=== PATIENT | female | born 1980 | race Caucasian/White ===

== ENCOUNTER → 2017-10-19 | Outpatient (CLI) | payer OTHER | LOC: FIMAGING 12:57 | PROVIDERS: ATTEND Registered Nurse | DX: O09.511 Supervision of elderly primigravida, first trimester (principal); Z3A.01 Less than 8 weeks gestation of pregnancy ==

== ENCOUNTER → 2018-02-07 | Outpatient (CLI) | payer OTHER | LOC: FIMAGING 11:50 | PROVIDERS: ATTEND Advanced Practice Midwife | DX: O09.522 Supervision of elderly multigravida, second trimester (principal); Z3A.22 22 weeks gestation of pregnancy ==

== ENCOUNTER 2018-06-10 16:10 | Observation (INO) | payer OTHER ==
[2018-06-10] MEDS ORDERED: LIDOCAINE 1% 300 MG/30 ML SDV ONE (16:58)
[2018-06-10] MEDS ORDERED: AMMONIA AROMATIC 1 EACH AMP IH ONE (16:59)
[2018-06-10] MEDS ORDERED: MISOPROSTOL 200 MCG TAB ONE (16:59)
[2018-06-10] MEDS ORDERED: OXYTOCIN 10 UNIT/ML VIAL ONE (16:59)
[2018-06-10] MEDS ORDERED: OLIVE OIL 118 ML BTL ONE (16:59)
[2018-06-10] MEDS ORDERED: TERBUTALINE SULFATE 1 MG/ML VIAL ONE (16:59)
--- NOTE | 2018-06-10 18:37 | SOAPPROG ---
TARA Progress Note Assessment/Plan: Assessment: 37 yo G3P@ @ 40.1 weeks. arrythmia Category 1 strip Plan: 06/10/18 18:[address] Vargas. If patient goes into labor tonight plan is for her to deliver at our hospital. Otherwise she may be discharged with plan to follow up tomorrow with [facility] for evaluation and to determine the best place for her to deliver her baby ( center vs hospital). Reviewed all of this with Cierra and given option of staying or discharging home tonight with plan to follow up with [facility] tomorrow. She plans on discharge now and will return if actively laboring. Maddison Stroud CNM was updated with the plan that she will arrange for Cierra to be evaluated tomorrow. Dr Spencer was also updated regarding this POC. 06/10/18 18:40 Subjective: Cierra 37 yo G3P@ 40.1 weeks. She is a patient of the [facility] and was being evaluated in the office today for normal visit. During that visit, the collections attorney heard audible skipped beats. After consulting with [facility] , Cierra was sent to L & D for further monitoring. She did have a VE done in the office and was found to be 1 cm, baby high. Objective: FHT Baseline 130; mod slava; multiple + accels, no decels. Visually subtle skipped beats are present, audibly were heard q 6 to 8 beats, with a run of skipped beats which did not milk pickup driver on the monitor. While being monitored began having frequent contractions which she notices however are normal for her for the last several nights. 20 week anatomy scan was performed by Dr Vargas of [facility] and structurally heart was noted to be normal. - Pending Discharge Pending Discharge Within 24 Hours: Yes Pending Discharge Date: 06/11/18 Pending Discharge Time: 11:00 ICD10 Worksheet Patient Problems: Problems Problem Status Onset arrhythmia affecting , antepartum Acute - ICD10 Problem Qualifiers (1) arrhythmia affecting , antepartum
== END 2018-06-10 18:20 | disposition home or self-care (01) ==
LOC: FLD 16:10
PROVIDERS: ADMIT Advanced Practice Midwife; ATTEND Advanced Practice Midwife
DX: O36.8330 Maternal care for abnormalities of the fetal heart rate or rhythm, third trimester, not applicable or unspecified (principal); Z3A.40 40 weeks gestation of pregnancy
CPT/HCPCS: J2590; J3105

== ENCOUNTER → 2018-06-11 | Outpatient (CLI) | payer OTHER | LOC: FIMAGING 14:25 | PROVIDERS: ATTEND Advanced Practice Midwife | DX: Z36.89 Encounter for other specified antenatal screening (principal); Z3A.40 40 weeks gestation of pregnancy ==

== ENCOUNTER 2018-06-13 02:20 | Inpatient (IN) | payer OTHER ==
[2018-06-13] MEDS ORDERED: LIDOCAINE 1% 300 MG/30 ML SDV ONE (02:33)
[2018-06-13] MEDS ORDERED: OLIVE OIL 118 ML BTL ONE (02:34)
[2018-06-13] MEDS ORDERED: OXYTOCIN 10 UNIT/ML VIAL ONE (02:34)
[2018-06-13] MEDS ORDERED: AMMONIA AROMATIC 1 EACH AMP IH ONE (02:34)
[2018-06-13] MEDS ORDERED: MISOPROSTOL 200 MCG TAB ONE (02:34)
[2018-06-13] MEDS ORDERED: MISOPROSTOL 200 MCG TAB PR PRN (02:52)
[2018-06-13] MEDS ORDERED: IBUPROFEN 600 MG TAB PO PRN (02:52)
[2018-06-13] MEDS ORDERED: OXYTOCIN/RINGERS LACTATE 1,000 ML IV PRN (02:52)
[2018-06-13] MEDS ORDERED: EPSOM SALT 454 GM TP PRN (02:52)
[2018-06-13] MEDS ORDERED: TERBUTALINE SULFATE 1 MG/ML VIAL IV PRN (02:52)
[2018-06-13] MEDS ORDERED: LIDOCAINE 1% 300 MG/30 ML SDV SC PRN (02:52)
[2018-06-13] MEDS ORDERED: LR 1,000 ML IV PRN (02:52)
[2018-06-13] MEDS ORDERED: OLIVE OIL 118 ML BTL MISC PRN (02:52)
[2018-06-13] MEDS: IBUPROFEN 600 MG TAB PO SCH ×2 (03:34→10:19)
--- NOTE | 2018-06-13 03:38 | PDGENHP ---
History and Physical History and Physical: CARE: [facility] HPI: Patient is a 37 yo G 4 P 2 @ 40.3 weeks that presents to L&D with complaints of strong, regular contractions. EDC: which is based on LMP: 09/02/18 which is known and consistent with Ultrasound at 7 weeks. Her is complicated by: hypothyroidism, baby with irregular heart beat at term. Review of Systems: Constitutional: Denies any fever, chills, or fatigue HEENT: denies any visual changes, difficulty swallowing, hearing loss Cardiovascular: Denies any chest pain, palpitations, leg swelling Respiratory: denies any cough, wheezing, or shortness of breathe GI: Denies any nausea, vomiting, diarrhea, constipation : denies any dysuria, urgency, frequency, vaginal bleeding Musculoskeletal: denies any muscle or bone pain Skin: denies any rashes Neuro: denies any headache, seizures, lightheadedness, dizziness, or loss of consciousness Psychiatric: denies any depression, anxiety, or SI/HI thoughts HISTORY: Previous OB history: , 2 term deliveries, 1 prior SAB Social history: , CLAIM CLERK at [employer] Family history: denies any family medical history Past medical history: hypothyroid Past surgical history: negative Medications: PNV, synthroid 100mcg daily, vit D Allergies (list reaction): NKDA LABS: Rh: A + ABS: Neg Rubella: Immune HbsAg: NR HIV: NR VDRL: NR 1hr: 85 GC: Neg Chlamydia: Neg Pap: Normal GBS: neg BMI: (prepreg) normal PHYSICAL EXAM: Constitutional: WN, A&Ox3 HEENT: normocephalic atraumatic, supple Heart: RRR, no murmur Chest: CTA-B Skin: warm, dry, intact Abdomen: Soft, nontender, gravid SVE: complete Extremities: no edema, negative homans sign Neuro: grossly normal Psych: normal affect assessment: FHT baseline 135bpm, +accels, no decels, moderate variability , audible arrythmia Contractions: toco q 2-3 min Assessment: 1) 37 yo G3 P 2 with IUP@ 40.3 2) active labor 3) GBS neg 4) Cat 2 FHR tracing Plan: 1) Admit to L&D 2) anticipate
--- NOTE | 2018-06-13 03:42 | OBDEL ---
Info Type: Vaginal Presentation at Delivery: Vertex L&D Analgesia/Anesthesia Type: None GBS+: No Intrapartum Medications: Generic Name Dose Route Start Last Admin Trade Name Clausq PRN Reason Stop Dose Admin Ibuprofen 600 mg 06/13/18 09:18 06/13/18 03:34 Motrin PO 12/10/18 09:17 600 mg Q6H SIMIN Administration - Infant Care Provider Strategic Business Development/CLAIM TECHNICIAN: Catrina Davis (Amber Rodriguez) - Hospital Course Intrapartum: 06/13/18 03:40 progessed rapidly to complete after arrival on the unit, SROM, on next contraction Indications for Delivery: Spontaneous Labor, Advanced Cervical Dilation Vaginal Delivery - Delivery Provider Delivery Physician/CNM: Mirlande Nunn - Labor and Delivery Onset of Contractions Date: 06/12/18 Onset of Contractions Time: 22:00 Onset of Contractions Type: Spontaneous Rupture of Membranes Date: 06/13/18 Rupture of Membranes Time: 02:35 Rupture of Membranes Type: Spontaneous Amniotic Fluid Color: Clear Dilation Complete Date: 06/13/18 Dilation Complete Time: 02:15 Placenta Delivery Date: 06/13/18 Placenta Delivery Time: 02:44 Total Hours of Labor: 4 Laceration: 2nd Degree Repair: 3-0, Vicryl Vaginal Sponge Count Correct: Yes Vaginal Needle Count Correct: Yes Vaginal Sweep Performed: Yes EBL: 250 Delivery Events: None Delivery Comment: precipitous Cord Gases: not collected Data ADONIS: 06/09/18 Gestational Age: 40 week(s) and 4 day(s) Ross Delivery Date: 06/13/18 Delivery Time: 02:40 Sex of : Female Score (1 Min): 8 Score (5 Min): 9 ICD10 Worksheet Patient Problems: Problems Problem Status Onset Labor without complication Acute (normal spontaneous vaginal delivery) Acute arrhythmia affecting , antepartum Acute
[2018-06-13] MEDS: ACETAMINOPHEN 325 MG TAB PO SCH ×2 (04:55→10:21)
[2018-06-13 08:41] VITALS: BP 110/62
--- NOTE | 2018-06-13 13:29 | OBGCSDC ---
General Delivery Information - General Info : 4 Para: 3 Abortions: 1 Type: Vaginal L&D Analgesia/Anesthesia Type: Local Admission Date: 06/13/18 - Hospital Course Intrapartum: 06/13/18 03:40 progessed rapidly to complete after arrival on the unit, SROM, on next contraction : 06/13/18 13:28 S) Pt doing well, reports min pain and bleeding. she is ambulating and voiding without difficulty. She is . She desires discharge home today. O) VSS, afebrile constitutional: WNF, A&Ox3 HEENT: normocephalic, atraumatic, supple Heart: RRR, No murmur Chest: CTA-B Breasts: soft, nontender,not engorged, nipples Abdomen: Soft, nontender Uterus: Firm at U-2 Lochia: Minimal rubra Perineum: healing well Extremities: Trace edema, and negative Earlene's sign Neuro: Grossly normal A) 37yo S/P PPD#0, approx 12 hours PP P) Discharge home today Continue Pelvic rest x6wks Discussed danger signs (infection, preeclampsia, depression, heavy bleeding, etc ) f/u with [facility] per pt desire- will have home visit tomorrow f/u with peds per Dr Hobbs's recommendation Vaginal - Delivery Provider Delivery Physician/CNM: Mirlande Nunn - Diagnosis Labor: Spontaneous Rupture of Membranes Type: Spontaneous Amniotic Fluid Color: Clear Laceration: 2nd Degree Repair: 3-0, Vicryl Delivery Events: None - Delivery EBL: 250 [place] Data ADONIS: 06/09/18 Gestational Age: 40 week(s) and 4 day(s) Ross Delivery Date: 06/13/18 Delivery Time: 02:40 Sex of : Female Weight (gm): 3494 kg Score (1 Min): 8 Score (5 Min): 9
== END 2018-06-13 15:03 | disposition home or self-care (01) | DRG 807 ==
LOC: FLD 02:20
PROVIDERS: ADMIT Advanced Practice Midwife; ATTEND Advanced Practice Midwife
PROC: 0KQM0ZZ Repair Perineum Muscle, Open Approach (ICD-10-PCS; principal; 2018-06-13)
PROC: 10E0XZZ Delivery of Products of Conception, External Approach (ICD-10-PCS; principal; 2018-06-13)
DX: O70.1 Second degree perineal laceration during delivery (principal); Z37.0 Single live birth; Z3A.40 40 weeks gestation of pregnancy; O99.284 Endocrine, nutritional and metabolic diseases complicating childbirth; E03.9 Hypothyroidism, unspecified
CPT/HCPCS: J2590

== ENCOUNTER 2018-06-18 13:09 | Emergency (ER) | payer OTHER ==
--- NOTE | 2018-06-18 13:15 | EDPHY ---
H & P Stated Complaint: RLQ Abd pain - Personal History Current Tetanus Diphtheria and Acellular Pertussis (TDAP): Unsure - Medical/Surgical History Hx Asthma: No Hx Chronic Respiratory Disease: No Hx Diabetes: No Hx Cardiac Disease: No Hx Renal Disease: No Hx Cirrhosis: No Hx Alcoholism: No Hx HIV/AIDS: No Hx Splenectomy or Spleen Trauma: No Other PMH: Hypothyroid on synthroid, 100mcg every 2 days, 125mcg on 3rd day - Social History Smoking Status: Never smoked Time Seen by Provider: 06/18/18 13:15 Constitutional: Initial Vital Signs Temperature (C) 36.6 C 06/18/18 13:10 Heart Rate 74 06/18/18 13:10 Respiratory Rate 16 06/18/18 13:10 Blood Pressure 138/93 H 06/18/18 13:10 O2 Sat (%) 96 06/18/18 13:10 O2 Delivery Mode Room Air Allergies/Adverse Reactions: No Known Allergies Allergy (Verified 06/18/18 13:10) Home Medications: Medication Instructions Recorded Levothyroxine [Synthroid 100 mcg 100 mcg PO DAILY06 06/10/18 (*)] Ibuprofen [Motrin (*)] 600 mg PO Q6H tab 06/13/18 Medical Decision Making - Diagnostics Imaging: Discussed imaging studies w/ transcription typist Radiologist - Diagnostics Imaging Results: Imaging Impressions Abdomen Ultrasound 06/18/18 13:20 Impression: Nonvisualization of the appendix with no secondary evidence of appendicitis. Findings discussed with Deshawn Harris MD 06/18/2018 at 1410. Pelvic/Renal Ultrasound 06/18/18 13:20 Impression: 1. Normal appearance of the uterus with no evidence of retained products of conception. 2. Nonvisualization of the ovaries. Findings discussed with Deshawn Harris MD 06/18/2018 at 14:10. Abdomen CT 06/18/18 14:12 Impression: 1. No acute findings in the abdomen or pelvis. 2. Moderate stool in proximal colon. 3. Enlarged uterus consistent with expected appearance. 4. Additional findings as above. Findings discussed with Ricardo Anderson MD, on 06/18/2018 at 15:07. ED Course/Re-evaluation: CHIEF COMPLAINT: abdominal pain HISTORY OF PRESENT ILLNESS: This patient is a healthy 37 year old female who is five days presenting with abdominal pain. She has a normal vaginal delivery 06/13/18 with no complications. She believes she delivered the full placenta as well. She has not had any ultrasounds since giving . The patient complains of sharp RLQ pain onset two days ago. This resolved briefly but returned yesterday morning and persists today. It is worse with changes in position. She spoke with staff at her [employer] office yesterday and was started on Augmentin for possible endometritis. She endorses chills for the past two days. Today, she saw her nurse welding machine operator electro gas who became concerned for appendicitis. The patient reports hisotory of appendicitis in father and brother. The patient denies nausea, vomiting, diarrhea, vaginal bleeding, weakness, or other associated symptoms. She denies history of abdominal surgeries. REVIEW OF SYSTEMS: A comprehensive 10 system review of systems is otherwise negative aside from elements mentioned in the history of present illness and medical decision making. PHYSICAL EXAM: HR, BP, O2 Sat, RR. Temp noted General Appearance: Alert, well hydrated, appropriate, and non-toxic appearing. Head: Atraumatic without scalp tenderness or obvious injury Eyes: Pupils equal, round, reactive to light and accommodation, EOMI, no trauma , no injection. Ears: Clear bilaterally, no perforation, normal landmarks Nose: Atraumatic, no rhinorrhea, clear. Throat: There is no erythema or exudates, no lesions, normal tonsils, mucus membranes moist. Neck: Supple, 2+ carotid upstroke, nontender, no lymphadenopathy. Respiratory: No retractions, no distress, no wheezes, and no accessory muscle use. Lungs are clear to auscultation bilaterally. Cardiovascular: Regular rate and rhythm, no murmurs, rubs, or gallops. Bilateral carotid, radial, dorsalis pedis, and posterior tibial pulses intact. Good capillary refill all extremities. Gastrointestinal: Exquisite right lower quadrant tenderness. Abdomen is soft, non-distended, no masses, no rebound, no guarding, no peritoneal signs. Musculoskeletal: Normal active ROM of all extremities, atraumatic. Neurological: Alert, appropriate, and interactive. The patient has normal DTRs and non-focal cranial nerves, motor, sensory, and cerebellar exam. Skin: No rashes, good turgor, no nodules on palpation. Past medical history: Hypothyroid Past surgical history: Denies Family history: Noncontributory Social history: . Lives in [place]. Employed. DIFFERENTIAL DIAGNOSIS: The differential diagnosis for the patient's abdominal pain included but was not limited to ovarian cyst, pelvic inflammatory disease, ovarian torsion, urinary tract infection, retained products of conception, cholecystitis, and appendicitis. MEDICAL DECISION MAKING: This is a 37 y/o female 5 days who presents with sharp RLQ pain. Plan for US RLQ and US pelvis to r/o possible appendicitis vs. retained products of conception or other acute abnormalities. Plan for labs including CBC , chemistries, liver, lipase, UA. 14:[address] Carrasco, radiologist. Unable to visualize appendix on RUQ US. Plan for CT for further evaluation. US pelvis negative for retained products of conception. Labs largely unremarkable. 15:00 Care of this patient signed out to Dr. Anderson at shift change pending CT result. (Deshawn Harris) Other Provider: Patient signed out to me at 1500 pending CTAP. Results of test called to me by Dr. Carrasco as negative for appendicitis or other abnormality. I informed patient of results. She is comfortable going home and will follow-up with her welding machine operator electro gas. She understands that the etiology of her symptoms is unknown. She will continue antibiotics. (Ricardo Anderson) - Data Points Laboratory Results: Laboratory Results 06/18/18 13:25 06/18/18 13:25 06/18/18 06/18/18 06/18/18 14:10 13:25 13:25 WBC 9.71 10^3/uL H 10^3/uL (3.80-9.50) RBC 4.11 10^6/uL L 10^6/uL (4.18-5.33) Hgb 13.3 g/dL g/dL (12.6-16.3) Hct 38.6 % % (38.0-47.0) MCV 93.9 fL fL (81.5-99.8) MCH 32.4 pg pg (27.9-34.1) MCHC 34.5 g/dL g/dL (32.4-36.7) RDW 12.6 % % (11.5-15.2) Plt Count 243 10^3/uL 10^3/uL (150-400) MPV 10.4 fL fL (8.7-11.7) Neut % (Auto) 68.0 % % (39.3-74.2) Lymph % (Auto) 22.0 % % (15.0-45.0) [place]ver % (Auto) 6.8 % % (4.5-13.0) Eos % (Auto) 1.4 % % (0.6-7.6) Baso % (Auto) 0.9 % % (0.3-1.7) Nucleat RBC Rel Count 0.0 % % (0.0-0.2) Absolute Neuts (auto) 6.59 10^3/uL H 10^3/uL (1.70-6.50) Absolute Lymphs (auto) 2.14 10^3/uL 10^3/uL (1.00-3.00) Absolute Monos (auto) 0.66 10^3/uL 10^3/uL (0.30-0.80) Absolute Eos (auto) 0.14 10^3/uL 10^3/uL (0.03-0.40) Absolute Basos (auto) 0.09 10^3/uL 10^3/uL (0.02-0.10) Absolute Nucleated RBC 0.00 10^3/uL 10^3/uL (0-0.01) Immature Gran % 0.9 % % (0.0-1.1) Immature Gran # 0.09 10^3/uL 10^3/uL (0.00-0.10) Sodium 137 mEq/L mEq/L (135-145) Potassium 4.0 mEq/L mEq/L (3.3-5.0) Chloride 106 mEq/L mEq/L (97-110) Carbon Dioxide 24 mEq/l mEq/l (22-31) Anion Gap 7 mEq/L mEq/L (6-14) BUN 16 mg/dL mg/dL (7-23) Creatinine 0.6 mg/dL mg/dL (0.6-1.0) Estimated GFR > 60 Glucose 80 mg/dL mg/dL (70-100) Calcium 9.3 mg/dL mg/dL (8.5-10.4) Total Bilirubin 0.2 mg/dL mg/dL (0.1-1.4) Conjugated Bilirubin 0.1 mg/dL mg/dL (0.0-0.5) Unconjugated Bilirubin 0.1 mg/dL mg/dL (0.0-1.1) AST 25 IU/L IU/L (14-46) ALT 24 IU/L IU/L (9-52) Alkaline Phosphatase 112 IU/L IU/L (38-126) Total Protein 6.8 g/dL g/dL (6.3-8.2) Albumin 3.8 g/dL g/dL (3.5-5.0) Lipase 53 IU/L IU/L (23-300) Urine Color PALE YELLOW Urine Appearance CLEAR Urine pH 7.0 (5.0-7.5) Ur Specific [place] 1.002 (1.002-1.030) Urine Protein NEGATIVE (NEGATIVE) Urine Ketones NEGATIVE (NEGATIVE) Urine Blood 2+ H (NEGATIVE) Urine Nitrate NEGATIVE (NEGATIVE) Urine Bilirubin NEGATIVE (NEGATIVE) Urine Urobilinogen NEGATIVE EU EU (0.2-1.0) Ur Leukocyte Esterase TRACE H (NEGATIVE) Urine RBC NONE SEEN /hpf /hpf (0-3) Urine WBC 5-10 /hpf H /hpf (0-3) Ur Epithelial Cells TRACE /lpf /lpf (NONE-1+) Urine Bacteria TRACE /hpf H /hpf (NONE SEEN) Urine Glucose NEGATIVE (NEGATIVE) Medications Given: Discontinued Medications Sodium Chloride (Ns) 1,000 mls @ 0 mls/hr IV EDNOW ONE; Wide Open PRN Reason: Protocol Stop: 06/18/18 13:31 Last Admin: 06/18/18 13:32 Dose: 1,000 mls Departure - Departure Disposition: Home, Routine, Self-Care Clinical Impression: Abdominal pain Qualifiers: Abdominal location: right lower quadrant Qualified Code(s): R10.31 - Right lower quadrant pain Condition: Good Instructions: Acute Abdominal Pain (ED) Additional Instructions: Follow-up with your primary doctor within 24 hours. Return to the Emergency Department for worsening pain, fever, severe vomiting, change in character or severity of pain or other worsening of condition. Referrals: Tara Kulkarni MD [Medical Doctor] - As per Instructions Report Scribed for: Deshawn Harris Report Scribed by: Irma Ochoa Date of Report: 06/18/18 Time of Report: 14:57
[2018-06-18] MEDS ORDERED: NS 1,000 ML IV ONE (13:30)
[2018-06-18 13:38] LABS: PLATELET COUNT 243 10^3/uL (150-400)
[2018-06-18] MEDS ORDERED: IOPAMIDOL (ISOVUE-300) 100 ML BTL ONE (14:19)
[2018-06-18 15:25] VITALS: BP 133/78
== END 2018-06-18 15:31 | disposition home or self-care (01) ==
DX: R10.31 Right lower quadrant pain (principal); E03.9 Hypothyroidism, unspecified; E86.9 Volume depletion, unspecified; Z79.899 Other long term (current) drug therapy
CPT/HCPCS: Q9967